=== PATIENT | male | born 2000 | race Caucasian/White ===

== ENCOUNTER 2022-07-01 15:31 | Emergency (ER) | payer OTHER ==
[~2022-07-01] VITALS: Ht 172.7 cm; Wt 63.5 kg
== END 2022-07-01 22:56 | disposition home or self-care (01) ==
LOC: ER 15:31 → EMR PED 15:38 → ER 15:38 → EMR PED 22:56
DX: R10.9 Unspecified abdominal pain (principal); J45.909 Unspecified asthma, uncomplicated; R11.2 Nausea with vomiting, unspecified; R19.7 Diarrhea, unspecified; Z20.822 Contact with and (suspected) exposure to COVID-19